=== PATIENT | male | born 1990 | race Caucasian/White ===

== ENCOUNTER 2018-09-22 13:15 | Emergency (ER) | payer BC ==
[~2018-09-22] VITALS: Ht 172.7 cm; Wt 103.4 kg
== END 2018-09-22 18:23 | disposition home or self-care (01) ==
LOC: ER 13:15
DX: M77.52 Other enthesopathy of left foot and ankle (principal); M79.672 Pain in left foot; S90.32XS Contusion of left foot, sequela; W22.8XXS Striking against or struck by other objects, sequela